=== PATIENT | male | born 1980 | race Caucasian/White ===

== ENCOUNTER 2021-12-22 02:21 | Emergency (ER) | payer OTHER ==
[~2021-12-22] VITALS: Ht 170.2 cm; Wt 113.6 kg
[2021-12-22 02:32] VITALS: BP 175/88
[2021-12-22] MEDS ORDERED: LIDOCAINE 2% MDV 20ML VIAL SC ONE (03:45)
[2021-12-22] MEDS ORDERED: BOOSTRIX/ADACEL VACCINE (DIPHTH/PERTUSS/ACELL/TETANUS) 0.5ML SYR IM ONE (04:00)
== END 2021-12-22 05:03 | disposition home or self-care (01) ==
LOC: M ED 02:21
DX: S01.511A Laceration without foreign body of lip, initial encounter (principal); Y04.2XXA Assault by strike against or bumped into by another person, initial encounter; Y07.04 Female partner, perpetrator of maltreatment and neglect; Y92.009 Unspecified place in unspecified non-institutional (private) residence as the place of occurrence of the external cause; Y93.9 Activity, unspecified; Y99.9 Unspecified external cause status